=== PATIENT | female | born 1940 | race Caucasian/White ===

== ENCOUNTER 2020-06-25 19:59 | Inpatient (IN) ==
[2020-06-26] MEDS ORDERED: D5% in Water 1,000 ML IVC PRN (15:22)
[2020-06-26] MEDS ORDERED: Dextrose Gel 15 GM/37.5 ML TUBE PO PRN ×2 (15:22)
[2020-06-26] MEDS ORDERED: *HR* Dextrose 50 % in Water (Vial) 50 ML VIAL IVP PRN (15:22)
[2020-06-26] MEDS: Insulin LISPRO 300 UNITS/3 ML VIAL SUBQ SCH ×2 (17:45→22:08)
[2020-06-27 05:04] LABS: Basophils # 0.1 K/mcL (0.0-0.2); Basophils % 0.5 %; Eosinophils # 0.1 K/mcL (0.0-0.6); Eosinophils % 0.8 %; Hematocrit 31.4 % (35.3-44.9); Hemoglobin 10.2 g/dL (11.5-15.4); Immature Granulocytes % 0.4 % (0-4); Lymphocytes # 1.3 K/mcL (0.6-4.6); Lymphocytes % 11.9 %; Mean Corpuscular HGB Conc 32.5 g/dL (31.6-35.5); Mean Corpuscular Hemoglobin 26.9 pg (28.0-33.3); Mean Corpuscular Volume 82.8 fL (83.0-100.0); Mean Platelet Volume 10.7 fL (9.4-12.4); Monocytes % 9.1 %; Neutrophils # 8.6 K/mcL (1.6-8.9); Platelet Count 339 K/mcL (140-400); Red Blood Count 3.79 M/mcL (3.82-4.97); Red Cell Distribution Width 15.8 % (11.5-14.5); Segmented Neutrophils % 77.3 %; White Blood Count 11.1 K/mcL (4.3-11.1)
[2020-06-27 05:32] LABS: BUN/Creatinine Ratio 24 (6-26); Blood Urea Nitrogen 24 mg/dL (8-23); Calcium 10.4 mg/dL (8.6-10.3); Carbon Dioxide 25 mEq/L (23-29); Chloride 107 mEq/L (98-107); Glucose 153 mg/dL (70-105); Magnesium 1.9 mg/dL (1.6-2.6); Osmolality,Calculated 297 (280-300); Sodium 140 mEq/L (136-145); eGFR For African Americans > 60 (> 60); eGFR For Non-African Americans 55 (> 60)
[2020-06-27] MEDS: *HR* Enoxaparin 40 MG/0.4 ML SYRINGE SQ SCH (05:36)
[2020-06-27] MEDS: Aspirin 81 MG TAB.CHEW PO SCH (09:21)
[2020-06-27] MEDS: amLODIPine 5 MG TABLET PO SCH (09:21)
[2020-06-27] MEDS: lisinopriL 20 MG TABLET PO SCH (09:21)
[2020-06-27] MEDS: Cyanocobalamin (B-12) 1,000 MCG TABLET PO SCH (09:21)
[2020-06-27] MEDS: Insulin LISPRO 300 UNITS/3 ML VIAL SUBQ SCH ×4 (09:33→22:33)
[2020-06-27] MEDS ORDERED: Cholecalciferol (D-3) 1,000 UNIT (25MCG) TABLET PO SCH (09:45)
[2020-06-27] MEDS ORDERED: Ergocalciferol (VIT D2) 50,000 UNIT (1.25MG) CAP PO SCH (14:50)
[2020-06-27] MEDS ORDERED: Ferrous Sulfate Oral Soln 300 MG/5 ML UDC PO SCH (17:00)
[2020-06-28] MEDS: *HR* Enoxaparin 40 MG/0.4 ML SYRINGE SQ SCH (04:37)
[2020-06-28 05:00] LABS: Hematocrit 29.8 % (35.3-44.9); Hemoglobin 9.6 g/dL (11.5-15.4); Mean Corpuscular HGB Conc 32.2 g/dL (31.6-35.5); Mean Corpuscular Hemoglobin 26.8 pg (28.0-33.3); Mean Corpuscular Volume 83.2 fL (83.0-100.0); Mean Platelet Volume 10.4 fL (9.4-12.4); Platelet Count 336 K/mcL (140-400); Red Blood Count 3.58 M/mcL (3.82-4.97); Red Cell Distribution Width 15.7 % (11.5-14.5); White Blood Count 9.7 K/mcL (4.3-11.1)
[2020-06-28 05:17] LABS: Alanine Aminotransferase 7 Units/L (7-52); Albumin 3.3 g/dL (3.5-5.7); Albumin/Globulin Ratio 1.2 (1.1-2.2); Alkaline Phosphatase 56 Units/L (34-104); Aspartate Amino Transferase 9 Units/L (13-39); BUN/Creatinine Ratio 26 (6-26); Bilirubin,Total 0.7 mg/dL (0.3-1.0); Blood Urea Nitrogen 25 mg/dL (8-23); Calcium 10.2 mg/dL (8.6-10.3); Carbon Dioxide 25 mEq/L (23-29); Chloride 107 mEq/L (98-107); Globulin 2.7 g/dL (2.4-3.5); Glucose 137 mg/dL (70-105); Osmolality,Calculated 295 (280-300); Potassium 3.9 mEq/L (3.5-5.1); Sodium 139 mEq/L (136-145); eGFR For African Americans > 60 (> 60); eGFR For Non-African Americans 56 (> 60)
[2020-06-28] MEDS: amLODIPine 5 MG TABLET PO SCH (09:36)
[2020-06-28] MEDS: Insulin LISPRO 300 UNITS/3 ML VIAL SUBQ SCH ×4 (09:36→22:13)
[2020-06-28] MEDS: Ferrous Sulfate Oral Soln 300 MG/5 ML UDC PO SCH ×2 (09:36→17:28)
[2020-06-28] MEDS: Aspirin 81 MG TAB.CHEW PO SCH (09:36)
[2020-06-28] MEDS: Cyanocobalamin (B-12) 1,000 MCG TABLET PO SCH (09:36)
[2020-06-28] MEDS: lisinopriL 20 MG TABLET PO SCH (09:37)
[2020-06-29] MEDS: *HR* Enoxaparin 40 MG/0.4 ML SYRINGE SQ SCH (04:31)
[2020-06-29] MEDS: Insulin LISPRO 300 UNITS/3 ML VIAL SUBQ SCH ×4 (09:03→22:22)
[2020-06-29] MEDS: amLODIPine 5 MG TABLET PO SCH (09:04)
[2020-06-29] MEDS: Aspirin 81 MG TAB.CHEW PO SCH (09:04)
[2020-06-29] MEDS: Cyanocobalamin (B-12) 1,000 MCG TABLET PO SCH (09:04)
[2020-06-29] MEDS: Ferrous Sulfate Oral Soln 300 MG/5 ML UDC PO SCH ×2 (09:04→17:38)
[2020-06-29] MEDS: lisinopriL 20 MG TABLET PO SCH (09:04)
[2020-06-30] MEDS: *HR* Enoxaparin 40 MG/0.4 ML SYRINGE SQ SCH (04:24)
[2020-06-30] MEDS: Insulin LISPRO 300 UNITS/3 ML VIAL SUBQ SCH ×4 (09:02→22:10)
[2020-06-30] MEDS: Cyanocobalamin (B-12) 1,000 MCG TABLET PO SCH (09:02)
[2020-06-30] MEDS: amLODIPine 5 MG TABLET PO SCH (09:02)
[2020-06-30] MEDS: lisinopriL 20 MG TABLET PO SCH (09:03)
[2020-06-30] MEDS: Aspirin 81 MG TAB.CHEW PO SCH (09:03)
[2020-06-30] MEDS: Ferrous Sulfate Oral Soln 300 MG/5 ML UDC PO SCH ×2 (09:05→17:30)
[2020-07-01] MEDS: *HR* Enoxaparin 40 MG/0.4 ML SYRINGE SQ SCH (05:32)
[2020-07-01] MEDS: Cyanocobalamin (B-12) 1,000 MCG TABLET PO SCH (08:46)
[2020-07-01] MEDS: lisinopriL 20 MG TABLET PO SCH (08:47)
[2020-07-01] MEDS: Ferrous Sulfate Oral Soln 300 MG/5 ML UDC PO SCH ×2 (08:48→17:48)
[2020-07-01] MEDS: amLODIPine 5 MG TABLET PO SCH (08:49)
[2020-07-01] MEDS: Aspirin 81 MG TAB.CHEW PO SCH (08:49)
[2020-07-01] MEDS: Insulin LISPRO 300 UNITS/3 ML VIAL SUBQ SCH ×4 (08:50→21:40)
[2020-07-01 13:51] LABS: Basophils # 0.1 K/mcL (0.0-0.2); Basophils % 0.5 %; Eosinophils % 0.1 %; Hematocrit 32.6 % (35.3-44.9); Hemoglobin 10.6 g/dL (11.5-15.4); Immature Granulocytes % 0.4 % (0-4); Lymphocytes # 0.8 K/mcL (0.6-4.6); Lymphocytes % 8.8 %; Mean Corpuscular HGB Conc 32.5 g/dL (31.6-35.5); Mean Corpuscular Volume 83.2 fL (83.0-100.0); Mean Platelet Volume 10.2 fL (9.4-12.4); Monocytes # 0.4 K/mcL (0.0-1.3); Monocytes % 4.4 %; Neutrophils # 7.9 K/mcL (1.6-8.9); Platelet Count 459 K/mcL (140-400); Red Blood Count 3.92 M/mcL (3.82-4.97); Red Cell Distribution Width 15.2 % (11.5-14.5); Segmented Neutrophils % 85.8 %; White Blood Count 9.3 K/mcL (4.3-11.1)
[2020-07-01 14:08] LABS: BUN/Creatinine Ratio 25 (6-26); Blood Urea Nitrogen 23 mg/dL (8-23); Calcium 10.8 mg/dL (8.6-10.3); Carbon Dioxide 27 mEq/L (23-29); Chloride 102 mEq/L (98-107); Glucose 160 mg/dL (70-105); Osmolality,Calculated 289 (280-300); Potassium 4.2 mEq/L (3.5-5.1); Sodium 136 mEq/L (136-145); eGFR For African Americans > 60 (> 60); eGFR For Non-African Americans 59 (> 60)
[2020-07-02] MEDS: *HR* Enoxaparin 40 MG/0.4 ML SYRINGE SQ SCH (06:11)
[2020-07-02] MEDS: Cyanocobalamin (B-12) 1,000 MCG TABLET PO SCH (09:48)
[2020-07-02] MEDS: Insulin LISPRO 300 UNITS/3 ML VIAL SUBQ SCH ×4 (09:48→20:41)
[2020-07-02] MEDS: Aspirin 81 MG TAB.CHEW PO SCH (09:48)
[2020-07-02] MEDS: amLODIPine 5 MG TABLET PO SCH (09:48)
[2020-07-02] MEDS: Ferrous Sulfate Oral Soln 300 MG/5 ML UDC PO SCH ×2 (09:48→17:25)
[2020-07-02] MEDS: lisinopriL 20 MG TABLET PO SCH (09:48)
[2020-07-03] MEDS: *HR* Enoxaparin 40 MG/0.4 ML SYRINGE SQ SCH (05:26)
[2020-07-03] MEDS: Insulin LISPRO 300 UNITS/3 ML VIAL SUBQ SCH ×4 (08:58→23:16)
[2020-07-03] MEDS: Aspirin 81 MG TAB.CHEW PO SCH (09:04)
[2020-07-03] MEDS: Cyanocobalamin (B-12) 1,000 MCG TABLET PO SCH (09:04)
[2020-07-03] MEDS: lisinopriL 20 MG TABLET PO SCH (09:04)
[2020-07-03] MEDS: amLODIPine 5 MG TABLET PO SCH (09:05)
[2020-07-03] MEDS: Ferrous Sulfate Oral Soln 300 MG/5 ML UDC PO SCH ×2 (09:05→16:32)
[2020-07-04] MEDS: *HR* Enoxaparin 40 MG/0.4 ML SYRINGE SQ SCH (06:40)
[2020-07-04] MEDS: Ferrous Sulfate Oral Soln 300 MG/5 ML UDC PO SCH ×2 (08:29→17:26)
[2020-07-04] MEDS: lisinopriL 20 MG TABLET PO SCH (08:29)
[2020-07-04] MEDS: amLODIPine 5 MG TABLET PO SCH (08:29)
[2020-07-04] MEDS: Aspirin 81 MG TAB.CHEW PO SCH (08:29)
[2020-07-04] MEDS: Cyanocobalamin (B-12) 1,000 MCG TABLET PO SCH (08:29)
[2020-07-04] MEDS: Insulin LISPRO 300 UNITS/3 ML VIAL SUBQ SCH ×4 (08:32→23:04)
[2020-07-05] MEDS: *HR* Enoxaparin 40 MG/0.4 ML SYRINGE SQ SCH (06:35)
[2020-07-05] MEDS: Cyanocobalamin (B-12) 1,000 MCG TABLET PO SCH (10:02)
[2020-07-05] MEDS: lisinopriL 20 MG TABLET PO SCH (10:02)
[2020-07-05] MEDS: Ferrous Sulfate Oral Soln 300 MG/5 ML UDC PO SCH ×2 (10:02→17:17)
[2020-07-05] MEDS: amLODIPine 5 MG TABLET PO SCH (10:03)
[2020-07-05] MEDS: Insulin LISPRO 300 UNITS/3 ML VIAL SUBQ SCH ×4 (10:03→21:11)
[2020-07-05] MEDS: Aspirin 81 MG TAB.CHEW PO SCH (10:03)
[2020-07-05] MEDS: tiZANidine 4 MG TABLET PO SCH ×2 (17:17→21:11)
[2020-07-06] MEDS: *HR* Enoxaparin 40 MG/0.4 ML SYRINGE SQ SCH (05:14)
[2020-07-06] MEDS: lisinopriL 20 MG TABLET PO SCH (08:09)
[2020-07-06] MEDS: Aspirin 81 MG TAB.CHEW PO SCH (08:09)
[2020-07-06] MEDS: tiZANidine 4 MG TABLET PO SCH ×3 (08:09→21:21)
[2020-07-06] MEDS: Ferrous Sulfate Oral Soln 300 MG/5 ML UDC PO SCH ×2 (08:09→16:51)
[2020-07-06] MEDS: Cyanocobalamin (B-12) 1,000 MCG TABLET PO SCH (08:09)
[2020-07-06] MEDS: amLODIPine 5 MG TABLET PO SCH (08:10)
[2020-07-06] MEDS: Insulin LISPRO 300 UNITS/3 ML VIAL SUBQ SCH ×4 (08:15→21:21)
[2020-07-07] MEDS: *HR* Enoxaparin 40 MG/0.4 ML SYRINGE SQ SCH (04:55)
[2020-07-07] MEDS: Insulin LISPRO 300 UNITS/3 ML VIAL SUBQ SCH ×4 (07:30→21:38)
[2020-07-07] MEDS: lisinopriL 20 MG TABLET PO SCH (07:30)
[2020-07-07] MEDS: tiZANidine 4 MG TABLET PO SCH ×3 (07:30→21:39)
[2020-07-07] MEDS: Cyanocobalamin (B-12) 1,000 MCG TABLET PO SCH (07:30)
[2020-07-07] MEDS: Ferrous Sulfate Oral Soln 300 MG/5 ML UDC PO SCH ×2 (07:30→16:01)
[2020-07-07] MEDS: Aspirin 81 MG TAB.CHEW PO SCH (07:30)
[2020-07-07] MEDS: amLODIPine 5 MG TABLET PO SCH (07:30)
[2020-07-07] MEDS: Chlorhexidine Rinse 15 ML MOUTHWASH MM SCH (21:39)
[2020-07-08] MEDS: *HR* Enoxaparin 40 MG/0.4 ML SYRINGE SQ SCH (04:19)
[2020-07-08] MEDS: Insulin LISPRO 300 UNITS/3 ML VIAL SUBQ SCH ×4 (07:45→22:52)
[2020-07-08] MEDS: Chlorhexidine Rinse 15 ML MOUTHWASH MM SCH ×2 (09:07→22:50)
[2020-07-08] MEDS: Ferrous Sulfate Oral Soln 300 MG/5 ML UDC PO SCH ×2 (09:07→15:31)
[2020-07-08] MEDS: Cyanocobalamin (B-12) 1,000 MCG TABLET PO SCH (09:08)
[2020-07-08] MEDS: amLODIPine 5 MG TABLET PO SCH (09:08)
[2020-07-08] MEDS: Aspirin 81 MG TAB.CHEW PO SCH (09:08)
[2020-07-08] MEDS: tiZANidine 4 MG TABLET PO SCH ×3 (09:09→22:45)
[2020-07-08] MEDS: lisinopriL 20 MG TABLET PO SCH (09:41)
[2020-07-09] MEDS: *HR* Enoxaparin 40 MG/0.4 ML SYRINGE SQ SCH (04:11)
[2020-07-09] MEDS: Insulin LISPRO 300 UNITS/3 ML VIAL SUBQ SCH ×4 (07:49→20:44)
[2020-07-09] MEDS: Ferrous Sulfate Oral Soln 300 MG/5 ML UDC PO SCH ×2 (09:33→16:52)
[2020-07-09] MEDS: amLODIPine 5 MG TABLET PO SCH (09:33)
[2020-07-09] MEDS: Chlorhexidine Rinse 15 ML MOUTHWASH MM SCH ×2 (09:33→20:47)
[2020-07-09] MEDS: Aspirin 81 MG TAB.CHEW PO SCH (09:33)
[2020-07-09] MEDS: lisinopriL 20 MG TABLET PO SCH (09:34)
[2020-07-09] MEDS: tiZANidine 4 MG TABLET PO SCH ×3 (09:34→20:45)
[2020-07-09] MEDS: Cyanocobalamin (B-12) 1,000 MCG TABLET PO SCH (09:34)
[2020-07-10] MEDS: *HR* Enoxaparin 40 MG/0.4 ML SYRINGE SQ SCH (05:11)
[2020-07-10] MEDS: Ferrous Sulfate Oral Soln 300 MG/5 ML UDC PO SCH ×2 (08:13→15:49)
[2020-07-10] MEDS: Chlorhexidine Rinse 15 ML MOUTHWASH MM SCH ×2 (08:13→20:34)
[2020-07-10] MEDS: Insulin LISPRO 300 UNITS/3 ML VIAL SUBQ SCH ×4 (08:13→20:31)
[2020-07-10] MEDS: lisinopriL 20 MG TABLET PO SCH (08:14)
[2020-07-10] MEDS: Cyanocobalamin (B-12) 1,000 MCG TABLET PO SCH (08:14)
[2020-07-10] MEDS: Aspirin 81 MG TAB.CHEW PO SCH (08:14)
[2020-07-10] MEDS: amLODIPine 5 MG TABLET PO SCH (08:15)
[2020-07-10] MEDS: tiZANidine 4 MG TABLET PO SCH ×3 (08:15→20:33)
[2020-07-11] MEDS: *HR* Enoxaparin 40 MG/0.4 ML SYRINGE SQ SCH (04:38)
[2020-07-11] MEDS: Insulin LISPRO 300 UNITS/3 ML VIAL SUBQ SCH ×4 (07:48→21:35)
[2020-07-11] MEDS: Chlorhexidine Rinse 15 ML MOUTHWASH MM SCH ×2 (07:49→21:35)
[2020-07-11] MEDS: Cyanocobalamin (B-12) 1,000 MCG TABLET PO SCH (07:49)
[2020-07-11] MEDS: tiZANidine 4 MG TABLET PO SCH ×3 (07:49→21:35)
[2020-07-11] MEDS: Aspirin 81 MG TAB.CHEW PO SCH (07:49)
[2020-07-11] MEDS: Ferrous Sulfate Oral Soln 300 MG/5 ML UDC PO SCH ×2 (07:49→17:13)
[2020-07-11] MEDS: lisinopriL 20 MG TABLET PO SCH (07:49)
[2020-07-11] MEDS: amLODIPine 5 MG TABLET PO SCH (07:49)
[2020-07-12] MEDS: *HR* Enoxaparin 40 MG/0.4 ML SYRINGE SQ SCH (04:58)
[2020-07-12 05:17] LABS: Basophils # 0.1 K/mcL (0.0-0.2); Basophils % 0.5 %; Eosinophils # 0.1 K/mcL (0.0-0.6); Eosinophils % 1.2 %; Immature Granulocytes % 0.3 % (0-4); Lymphocytes # 1.5 K/mcL (0.6-4.6); Lymphocytes % 14.8 %; Mean Corpuscular HGB Conc 31.8 g/dL (31.6-35.5); Mean Corpuscular Volume 84.9 fL (83.0-100.0); Mean Platelet Volume 10.4 fL (9.4-12.4); Monocytes # 0.7 K/mcL (0.0-1.3); Monocytes % 7.2 %; Neutrophils # 7.4 K/mcL (1.6-8.9); Platelet Count 459 K/mcL (140-400); Red Blood Count 2.59 M/mcL (3.82-4.97); Red Cell Distribution Width 16.2 % (11.5-14.5); White Blood Count 9.8 K/mcL (4.3-11.1)
[2020-07-12 05:32] LABS: BUN/Creatinine Ratio 22 (6-26); Blood Urea Nitrogen 19 mg/dL (8-23); Calcium 9.7 mg/dL (8.6-10.3); Carbon Dioxide 27 mEq/L (23-29); Chloride 107 mEq/L (98-107); Glucose 126 mg/dL (70-105); Osmolality,Calculated 290 (280-300); Sodium 138 mEq/L (136-145); eGFR For African Americans > 60 (> 60); eGFR For Non-African Americans > 60 (> 60)
[2020-07-12] MEDS: Insulin LISPRO 300 UNITS/3 ML VIAL SUBQ SCH ×4 (07:50→21:05)
[2020-07-12] MEDS: Chlorhexidine Rinse 15 ML MOUTHWASH MM SCH ×2 (09:43→21:06)
[2020-07-12] MEDS: lisinopriL 20 MG TABLET PO SCH (09:43)
[2020-07-12] MEDS: Aspirin 81 MG TAB.CHEW PO SCH (09:43)
[2020-07-12] MEDS: amLODIPine 5 MG TABLET PO SCH (09:43)
[2020-07-12] MEDS: tiZANidine 4 MG TABLET PO SCH ×3 (09:43→21:06)
[2020-07-12] MEDS: Ferrous Sulfate Oral Soln 300 MG/5 ML UDC PO SCH ×2 (09:44→16:40)
[2020-07-12] MEDS: Cyanocobalamin (B-12) 1,000 MCG TABLET PO SCH (09:44)
[2020-07-12 14:27] LABS: Hematocrit 23.5 % (35.3-44.9); Hemoglobin 7.5 g/dL (11.5-15.4); Mean Corpuscular HGB Conc 31.9 g/dL (31.6-35.5); Mean Corpuscular Hemoglobin 27.4 pg (28.0-33.3); Mean Corpuscular Volume 85.8 fL (83.0-100.0); Mean Platelet Volume 10.4 fL (9.4-12.4); Platelet Count 474 K/mcL (140-400); Red Blood Count 2.74 M/mcL (3.82-4.97); Red Cell Distribution Width 16.4 % (11.5-14.5); White Blood Count 10.3 K/mcL (4.3-11.1)
[2020-07-12 18:58] LABS: % Iron Saturation 13 % (15-50); Iron 33 mcg/dL (50-170); Transferrin 178 mg/dL (203-362)
[2020-07-12 18:59] LABS: Prealbumin 20.2 mg/dL (17.0-34.0)
[2020-07-13] MEDS: *HR* Enoxaparin 40 MG/0.4 ML SYRINGE SQ SCH (04:28)
[2020-07-13 04:47] LABS: Hematocrit 21.2 % (35.3-44.9); Hemoglobin 6.8 g/dL (11.5-15.4); Mean Corpuscular HGB Conc 32.1 g/dL (31.6-35.5); Mean Corpuscular Hemoglobin 27.3 pg (28.0-33.3); Mean Corpuscular Volume 85.1 fL (83.0-100.0); Mean Platelet Volume 10.6 fL (9.4-12.4); Platelet Count 439 K/mcL (140-400); Red Blood Count 2.49 M/mcL (3.82-4.97); Red Cell Distribution Width 16.6 % (11.5-14.5); White Blood Count 10.4 K/mcL (4.3-11.1)
[2020-07-13 05:00] LABS: BUN/Creatinine Ratio 24 (6-26); Blood Urea Nitrogen 21 mg/dL (8-23); Calcium 9.6 mg/dL (8.6-10.3); Carbon Dioxide 25 mEq/L (23-29); Chloride 105 mEq/L (98-107); Glucose 99 mg/dL (70-105); Osmolality,Calculated 287 (280-300); Potassium 3.8 mEq/L (3.5-5.1); Sodium 137 mEq/L (136-145); eGFR For African Americans > 60 (> 60); eGFR For Non-African Americans > 60 (> 60)
[2020-07-13] MEDS ORDERED: 0.9 % Sodium Chloride 250 ML IVC SCH (05:45)
[2020-07-13] MEDS: Cyanocobalamin (B-12) 1,000 MCG TABLET PO SCH (08:15)
[2020-07-13] MEDS: tiZANidine 4 MG TABLET PO SCH ×3 (08:15→17:31)
[2020-07-13] MEDS: Ferrous Sulfate Oral Soln 300 MG/5 ML UDC PO SCH ×2 (08:15→17:31)
[2020-07-13] MEDS: Aspirin 81 MG TAB.CHEW PO SCH (08:15)
[2020-07-13] MEDS: lisinopriL 20 MG TABLET PO SCH (08:15)
[2020-07-13] MEDS: Insulin LISPRO 300 UNITS/3 ML VIAL SUBQ SCH ×4 (08:15→21:56)
[2020-07-13] MEDS: amLODIPine 5 MG TABLET PO SCH (08:15)
[2020-07-13] MEDS: Chlorhexidine Rinse 15 ML MOUTHWASH MM SCH ×2 (08:16→21:56)
[2020-07-13 13:12] LABS: Hematocrit 26.8 % (35.3-44.9); Hemoglobin 8.7 g/dL (11.5-15.4)
[2020-07-14] MEDS: *HR* Enoxaparin 40 MG/0.4 ML SYRINGE SQ SCH (04:37)
[2020-07-14 05:34] LABS: Basophils # 0.1 K/mcL (0.0-0.2); Basophils % 0.6 %; Eosinophils # 0.1 K/mcL (0.0-0.6); Eosinophils % 0.8 %; Hematocrit 24.8 % (35.3-44.9); Immature Granulocytes % 0.2 % (0-4); Lymphocytes # 1.3 K/mcL (0.6-4.6); Lymphocytes % 14.8 %; Mean Corpuscular HGB Conc 32.3 g/dL (31.6-35.5); Mean Corpuscular Hemoglobin 27.3 pg (28.0-33.3); Mean Corpuscular Volume 84.6 fL (83.0-100.0); Mean Platelet Volume 10.5 fL (9.4-12.4); Monocytes # 0.7 K/mcL (0.0-1.3); Monocytes % 8.1 %; Neutrophils # 6.8 K/mcL (1.6-8.9); Platelet Count 428 K/mcL (140-400); Red Blood Count 2.93 M/mcL (3.82-4.97); Red Cell Distribution Width 16.8 % (11.5-14.5); Segmented Neutrophils % 75.5 %
[2020-07-14 05:51] LABS: BUN/Creatinine Ratio 15 (6-26); Blood Urea Nitrogen 14 mg/dL (8-23); Calcium 9.6 mg/dL (8.6-10.3); Carbon Dioxide 28 mEq/L (23-29); Chloride 104 mEq/L (98-107); Glucose 107 mg/dL (70-105); Osmolality,Calculated 285 (280-300); Sodium 137 mEq/L (136-145); eGFR For African Americans > 60 (> 60); eGFR For Non-African Americans 60 (> 60)
[2020-07-14] MEDS: Insulin LISPRO 300 UNITS/3 ML VIAL SUBQ SCH ×4 (09:06→21:06)
[2020-07-14] MEDS: Aspirin 81 MG TAB.CHEW PO SCH (09:16)
[2020-07-14] MEDS: tiZANidine 4 MG TABLET PO SCH ×3 (09:16→21:06)
[2020-07-14] MEDS: amLODIPine 5 MG TABLET PO SCH (09:16)
[2020-07-14] MEDS: Chlorhexidine Rinse 15 ML MOUTHWASH MM SCH ×2 (09:16→21:07)
[2020-07-14] MEDS: Ferrous Sulfate Oral Soln 300 MG/5 ML UDC PO SCH ×2 (09:16→17:32)
[2020-07-14] MEDS: Cyanocobalamin (B-12) 1,000 MCG TABLET PO SCH (09:16)
[2020-07-14] MEDS: lisinopriL 20 MG TABLET PO SCH (09:17)
[2020-07-15] MEDS: *HR* Enoxaparin 40 MG/0.4 ML SYRINGE SQ SCH (05:12)
[2020-07-15] MEDS: tiZANidine 4 MG TABLET PO SCH ×3 (08:58→21:14)
[2020-07-15] MEDS: Ferrous Sulfate Oral Soln 300 MG/5 ML UDC PO SCH ×2 (08:58→17:49)
[2020-07-15] MEDS: Cyanocobalamin (B-12) 1,000 MCG TABLET PO SCH (08:58)
[2020-07-15] MEDS: Insulin LISPRO 300 UNITS/3 ML VIAL SUBQ SCH ×4 (08:58→21:13)
[2020-07-15] MEDS: Aspirin 81 MG TAB.CHEW PO SCH (08:58)
[2020-07-15] MEDS: amLODIPine 5 MG TABLET PO SCH (08:58)
[2020-07-15] MEDS: lisinopriL 20 MG TABLET PO SCH (08:58)
[2020-07-15] MEDS: Chlorhexidine Rinse 15 ML MOUTHWASH MM SCH ×2 (08:58→21:13)
[2020-07-15] MEDS: Acetaminophen 325 MG TABLET PO PRN ×2 (12:37→21:13)
[2020-07-15 16:45] LABS: Basophils # 0.1 K/mcL (0.0-0.2); Basophils % 0.5 %; Eosinophils # 0.1 K/mcL (0.0-0.6); Hematocrit 25.4 % (35.3-44.9); Hemoglobin 8.3 g/dL (11.5-15.4); Immature Granulocytes % 0.5 % (0-4); Lymphocytes # 1.1 K/mcL (0.6-4.6); Lymphocytes % 11.3 %; Mean Corpuscular HGB Conc 32.7 g/dL (31.6-35.5); Mean Corpuscular Volume 85.8 fL (83.0-100.0); Mean Platelet Volume 10.4 fL (9.4-12.4); Monocytes # 0.9 K/mcL (0.0-1.3); Monocytes % 8.8 %; Neutrophils # 7.8 K/mcL (1.6-8.9); Platelet Count 408 K/mcL (140-400); Red Blood Count 2.96 M/mcL (3.82-4.97); Red Cell Distribution Width 16.8 % (11.5-14.5); Segmented Neutrophils % 77.9 %; White Blood Count 10.1 K/mcL (4.3-11.1)
[2020-07-16] MEDS: *HR* Enoxaparin 40 MG/0.4 ML SYRINGE SQ SCH (04:59)
[2020-07-16] MEDS: Insulin LISPRO 300 UNITS/3 ML VIAL SUBQ SCH ×4 (08:35→22:55)
[2020-07-16] MEDS: Aspirin 81 MG TAB.CHEW PO SCH (08:56)
[2020-07-16] MEDS: Cyanocobalamin (B-12) 1,000 MCG TABLET PO SCH (08:57)
[2020-07-16] MEDS: tiZANidine 4 MG TABLET PO SCH ×3 (08:57→22:54)
[2020-07-16] MEDS: amLODIPine 5 MG TABLET PO SCH (08:59)
[2020-07-16] MEDS: Chlorhexidine Rinse 15 ML MOUTHWASH MM SCH ×2 (08:59→22:55)
[2020-07-16] MEDS: Ferrous Sulfate Oral Soln 300 MG/5 ML UDC PO SCH ×2 (08:59→16:38)
[2020-07-16] MEDS: lisinopriL 20 MG TABLET PO SCH (09:02)
[2020-07-16] MEDS: Acetaminophen 325 MG TABLET PO PRN (16:37)
[2020-07-17] MEDS: Acetaminophen 325 MG TABLET PO PRN (04:59)
[2020-07-17] MEDS: *HR* Enoxaparin 40 MG/0.4 ML SYRINGE SQ SCH (05:00)
[2020-07-17] MEDS: Insulin LISPRO 300 UNITS/3 ML VIAL SUBQ SCH ×4 (07:58→21:12)
[2020-07-17] MEDS: Ferrous Sulfate Oral Soln 300 MG/5 ML UDC PO SCH ×2 (09:35→17:07)
[2020-07-17] MEDS: Chlorhexidine Rinse 15 ML MOUTHWASH MM SCH ×2 (09:35→21:12)
[2020-07-17] MEDS: lisinopriL 20 MG TABLET PO SCH (09:36)
[2020-07-17] MEDS: amLODIPine 5 MG TABLET PO SCH (09:37)
[2020-07-17] MEDS: tiZANidine 4 MG TABLET PO SCH ×3 (09:37→21:12)
[2020-07-17] MEDS: Aspirin 81 MG TAB.CHEW PO SCH (09:37)
[2020-07-17] MEDS: Cyanocobalamin (B-12) 1,000 MCG TABLET PO SCH (09:37)
[2020-07-18] MEDS: *HR* Enoxaparin 40 MG/0.4 ML SYRINGE SQ SCH (04:54)
[2020-07-18] MEDS: Insulin LISPRO 300 UNITS/3 ML VIAL SUBQ SCH ×4 (08:23→20:19)
[2020-07-18] MEDS: Chlorhexidine Rinse 15 ML MOUTHWASH MM SCH ×2 (08:56→20:31)
[2020-07-18] MEDS: Ferrous Sulfate Oral Soln 300 MG/5 ML UDC PO SCH ×2 (08:56→16:49)
[2020-07-18] MEDS: Aspirin 81 MG TAB.CHEW PO SCH (08:57)
[2020-07-18] MEDS: tiZANidine 4 MG TABLET PO SCH ×3 (08:57→20:26)
[2020-07-18] MEDS: Cyanocobalamin (B-12) 1,000 MCG TABLET PO SCH (08:58)
[2020-07-18] MEDS: lisinopriL 20 MG TABLET PO SCH (08:58)
[2020-07-18] MEDS: amLODIPine 5 MG TABLET PO SCH (08:58)
[2020-07-19] MEDS: *HR* Enoxaparin 40 MG/0.4 ML SYRINGE SQ SCH (04:28)
[2020-07-19] MEDS: Insulin LISPRO 300 UNITS/3 ML VIAL SUBQ SCH ×4 (08:40→22:55)
[2020-07-19] MEDS: Aspirin 81 MG TAB.CHEW PO SCH (08:50)
[2020-07-19] MEDS: lisinopriL 20 MG TABLET PO SCH (08:50)
[2020-07-19] MEDS: Chlorhexidine Rinse 15 ML MOUTHWASH MM SCH ×2 (08:51→23:01)
[2020-07-19] MEDS: tiZANidine 4 MG TABLET PO SCH ×3 (08:51→23:01)
[2020-07-19] MEDS: Ferrous Sulfate Oral Soln 300 MG/5 ML UDC PO SCH ×2 (08:51→15:34)
[2020-07-19] MEDS: Cyanocobalamin (B-12) 1,000 MCG TABLET PO SCH (08:51)
[2020-07-19] MEDS: amLODIPine 5 MG TABLET PO SCH (08:51)
[2020-07-20] MEDS: *HR* Enoxaparin 40 MG/0.4 ML SYRINGE SQ SCH (04:56)
[2020-07-20] MEDS: Aspirin 81 MG TAB.CHEW PO SCH (10:04)
[2020-07-20] MEDS: Insulin LISPRO 300 UNITS/3 ML VIAL SUBQ SCH ×4 (10:04→20:55)
[2020-07-20] MEDS: tiZANidine 4 MG TABLET PO SCH ×3 (10:04→20:52)
[2020-07-20] MEDS: Ferrous Sulfate Oral Soln 300 MG/5 ML UDC PO SCH ×2 (10:04→16:43)
[2020-07-20] MEDS: Chlorhexidine Rinse 15 ML MOUTHWASH MM SCH ×2 (10:04→20:55)
[2020-07-20] MEDS: lisinopriL 20 MG TABLET PO SCH (10:04)
[2020-07-20] MEDS: Cyanocobalamin (B-12) 1,000 MCG TABLET PO SCH (10:04)
[2020-07-20] MEDS: amLODIPine 5 MG TABLET PO SCH (10:04)
[2020-07-20 12:10] LABS: Basophils % 0.5 %; Eosinophils # 0.1 K/mcL (0.0-0.6); Eosinophils % 0.8 %; Hematocrit 27.3 % (35.3-44.9); Hemoglobin 8.7 g/dL (11.5-15.4); Immature Granulocytes % 0.2 % (0-4); Lymphocytes # 1.1 K/mcL (0.6-4.6); Lymphocytes % 13.5 %; Mean Corpuscular HGB Conc 31.9 g/dL (31.6-35.5); Mean Corpuscular Hemoglobin 27.6 pg (28.0-33.3); Mean Corpuscular Volume 86.7 fL (83.0-100.0); Mean Platelet Volume 9.8 fL (9.4-12.4); Monocytes # 0.6 K/mcL (0.0-1.3); Monocytes % 6.9 %; Neutrophils # 6.5 K/mcL (1.6-8.9); Platelet Count 404 K/mcL (140-400); Red Blood Count 3.15 M/mcL (3.82-4.97); Red Cell Distribution Width 16.4 % (11.5-14.5); Segmented Neutrophils % 78.1 %; White Blood Count 8.3 K/mcL (4.3-11.1)
[2020-07-20 12:33] LABS: BUN/Creatinine Ratio 21 (6-26); Blood Urea Nitrogen 18 mg/dL (8-23); Calcium 9.8 mg/dL (8.6-10.3); Carbon Dioxide 28 mEq/L (23-29); Chloride 104 mEq/L (98-107); Glucose 107 mg/dL (70-105); Osmolality,Calculated 286 (280-300); Potassium 3.9 mEq/L (3.5-5.1); Sodium 137 mEq/L (136-145); eGFR For African Americans > 60 (> 60); eGFR For Non-African Americans > 60 (> 60)
[2020-07-20] MEDS ORDERED: E-Z-PAQUE (BARIUM SULF) SUSP 1 BOTTLE PO ONE (13:37)
[2020-07-20] MEDS ORDERED: E-Z-HD (BARIUM SULF) SUSPENSION PO ONE (13:37)
[2020-07-21] MEDS: *HR* Enoxaparin 40 MG/0.4 ML SYRINGE SQ SCH (04:56)
[2020-07-21] MEDS: Insulin LISPRO 300 UNITS/3 ML VIAL SUBQ SCH ×4 (07:34→20:42)
[2020-07-21] MEDS: lisinopriL 20 MG TABLET PO SCH (08:55)
[2020-07-21] MEDS: Cyanocobalamin (B-12) 1,000 MCG TABLET PO SCH (08:55)
[2020-07-21] MEDS: Ferrous Sulfate Oral Soln 300 MG/5 ML UDC PO SCH ×2 (08:55→15:45)
[2020-07-21] MEDS: tiZANidine 4 MG TABLET PO SCH ×3 (08:55→20:42)
[2020-07-21] MEDS: Chlorhexidine Rinse 15 ML MOUTHWASH MM SCH ×2 (08:55→20:42)
[2020-07-21] MEDS: Aspirin 81 MG TAB.CHEW PO SCH (08:55)
[2020-07-21] MEDS: amLODIPine 5 MG TABLET PO SCH (08:55)
[2020-07-22 01:38] LABS: Bilirubin,Urine Negative (Negative); Blood,Urine Negative (Negative); Clarity,Urine Slightly Cloudy (Clear); Glucose,Urine (UA) Normal (Normal); Ketones,Urine Negative (Negative); Leukocyte Esterase,Urine Negative (Negative); Nitrite,Urine Negative (Negative); PH,Urine 6.5 pH Units (5.0-8.0); Protein,Urine 30 mg/dL (Neg-Trace); Specific Gravity,Urine 1.025 (1.010-1.025); Urobilinogen,Urine Normal (Normal)
[2020-07-22 01:45] LABS: Amorphous Sediment,Urine Few per hpf (None-Few); Color,Urine Yellow (Yellow); Squamous Epithelial Cell,Urine Few per hpf (None-Few)
[2020-07-22] MEDS: *HR* Enoxaparin 40 MG/0.4 ML SYRINGE SQ SCH (06:17)
[2020-07-22] MEDS: Insulin LISPRO 300 UNITS/3 ML VIAL SUBQ SCH ×4 (07:51→20:43)
[2020-07-22] MEDS: Chlorhexidine Rinse 15 ML MOUTHWASH MM SCH ×2 (08:04→20:42)
[2020-07-22] MEDS: lisinopriL 20 MG TABLET PO SCH (08:04)
[2020-07-22] MEDS: amLODIPine 5 MG TABLET PO SCH (08:04)
[2020-07-22] MEDS: Cyanocobalamin (B-12) 1,000 MCG TABLET PO SCH (08:04)
[2020-07-22] MEDS: Aspirin 81 MG TAB.CHEW PO SCH (08:04)
[2020-07-22] MEDS: tiZANidine 4 MG TABLET PO SCH ×3 (08:04→20:42)
[2020-07-22] MEDS: Ferrous Sulfate Oral Soln 300 MG/5 ML UDC PO SCH ×2 (08:04→16:10)
[2020-07-23] MEDS: *HR* Enoxaparin 40 MG/0.4 ML SYRINGE SQ SCH (04:58)
[2020-07-23 07:02] VITALS: BP 144/66
[2020-07-23] MEDS: Insulin LISPRO 300 UNITS/3 ML VIAL SUBQ SCH (07:46)
[2020-07-23] MEDS: lisinopriL 20 MG TABLET PO SCH (08:28)
[2020-07-23] MEDS: Aspirin 81 MG TAB.CHEW PO SCH (08:28)
[2020-07-23] MEDS: amLODIPine 5 MG TABLET PO SCH (08:28)
[2020-07-23] MEDS: Chlorhexidine Rinse 15 ML MOUTHWASH MM SCH (08:28)
[2020-07-23] MEDS: Cyanocobalamin (B-12) 1,000 MCG TABLET PO SCH (08:28)
[2020-07-23] MEDS: Ferrous Sulfate Oral Soln 300 MG/5 ML UDC PO SCH (08:28)
[2020-07-23] MEDS: tiZANidine 4 MG TABLET PO SCH (08:28)
== END 2020-07-23 11:35 | disposition home health service (06) | DRG 57 ==
LOC: INPGRE 06-26 14:30
PROVIDERS: ADMIT Family Medicine; ATTEND Family Medicine